=== PATIENT | male | born 1980 | race Caucasian/White ===

== ENCOUNTER 2017-09-23 12:26 | Emergency (ER) | payer SELFPAY ==
[~2017-09-23] VITALS: Ht 195.6 cm; Wt 117.9 kg
[~2017-09-23 12:26] MED LIST: LISINOPRIL-HCT1 EAC1 PO; MUCINEX1200 MG PO; PROAIR HFA8.5 GM INH; TAMIFLU75 MG PO
[2017-09-23] MEDS ORDERED: LISINOPRIL-HCT1 EAC1 PO (12:58)
[2017-09-23] MEDS ORDERED: VENTOLIN HFA18 GM INH (12:58)
== END 2017-09-23 13:11 | disposition home or self-care (01) ==
LOC: ED 12:26
DX: I10 Essential (primary) hypertension (principal); J45.909 Unspecified asthma, uncomplicated; Z79.899 Other long term (current) drug therapy
CPT/HCPCS: 99283